=== PATIENT | male | born 1975 | race Caucasian/White ===

== ENCOUNTER 2019-09-03 00:10 | Emergency (ER) | payer BC ==
[~2019-09-03] VITALS: Ht 177.8 cm; Wt 127.9 kg
[~2019-09-03 00:10] MED LIST: AMBIEN 5 MG TABL5 M1 PO; CYMBALTA60 MG PO; FLEXERIL; NAPROSYN500 MG; OXYCODON-ACETA1 EAC1 PO; OXYCODONE HCL 55 MG PO; PERCOCET 5-3251 EACH PO; TOPAMAX100 MG; ZOFRAN ODT4 MG PO
[2019-09-03 01:02] LABS: ABSOLUTE BASOPHILS 0.1 thou/uL (0.0-0.2); ABSOLUTE EOSINOPHILS 0.2 thou/uL (0.0-0.7); ABSOLUTE LYMPHOCYTES 2.2 thou/uL (0.8-5.3); ABSOLUTE MONOCYTES 0.7 thou/uL (0.0-1.2); ABSOLUTE NEUTROPHILS 5.2 thou/uL (1.6-8.1); BASOPHILS 0.7 %; EOSINOPHILS 2.1 %; HEMATOCRIT 45.9 % (42.0-52.0); HEMOGLOBIN 15.9 gm/dL (14.0-18.0); LYMPHOCYTES 26.5 %; MCH 30.9 pg (26.0-34.0); MCHC 34.6 g/dL (28.0-37.0); MCV 89.4 fL (80.0-100.0); MPV 9.4 fl. (7.2-11.1); NUCLEATED RBCS 0 /100WBC; PLATELET COUNT* 198 thou/uL (150-400); POLYS 62.7 %; RBC 5.13 mil/uL (4.50-6.00); WBC 8.3 thou/uL (4.0-11.0)
[2019-09-03 01:10] LABS: CALCIUM 7.3 mg/dL (8.5-10.1); CREATININE 1.1 mg/dL (0.6-1.3); POTASSIUM 3.5 mmol/L (3.5-5.1)
[2019-09-03 01:15] LABS: ALBUMIN 3.5 g/dL (3.4-5.0); TOTAL BILIRUBIN 0.3 mg/dL (<0.1-1.0); TOTAL PROTEIN 6.8 g/dL (6.4-8.2)
[2019-09-03 06:30] VITALS: BP 175/99
== END 2019-09-03 06:32 | disposition still patient (30) ==
LOC: M.ERS 00:10
PROVIDERS: Emergency Medicine
DX: F10.129 Alcohol abuse with intoxication, unspecified (principal); Y90.7 Blood alcohol level of 200-239 mg/100 ml; R11.10 Vomiting, unspecified; F17.220 Nicotine dependence, chewing tobacco, uncomplicated; Z86.14 Personal history of Methicillin resistant Staphylococcus aureus infection